=== PATIENT | male | born 1970 | race Caucasian/White ===

== ENCOUNTER 2019-07-16 09:54 | Emergency (ER) | payer OTHER, SELFPAY ==
[2019-07-16 10:03] VITALS: BP 122/81; PULSE 110; RESP 20; TEMP 36.7; O2SAT 97
[2019-07-16 10:08] VITALS: PULSE 110; RESP 20; O2SAT 97
--- NOTE | 2019-07-16 10:14 | ED.GENADULT ---
HPI - General Adult General Chief complaint: Upper Respiratory Infection Stated complaint: cough/dizzy/chest hurts/fever Time Seen by Provider: 07/16/19 10:14 Source: patient Mode of arrival: ambulatory Limitations: no limitations History of Present Illness HPI narrative: 49-year-old male patient presents to the [facility] with complaints of cold and flu symptoms that started 3 days ago. Patient states that he did not get a flu shot this year. Patient states he started with cold symptoms such as some nasal congestion coughing. Patient states he does have some chest pain at times when he coughs but denies any shortness of breath. Patient states he has been feeling very achy with fevers as high as 100-1 01. Related Data Allergies Allergy/AdvReac Type Severity Reaction Status Date / Time No Known Allergies Allergy Verified 07/16/19 10:03 Review of Systems Review of Systems: Narrative: CONSTITUTIONAL: Positive fever, chills, body aches and sweats. EYES: Denies visual changes, redness, or discharge. ENT: Positive rhinorrhea, congestion, denies sore throat, or otalgia. CARDIOVASCULAR: Positive chest pain when coughing, denies palpitations, or edema. RESPIRATORY: Positive cough, denies dyspnea. GASTROINTESTINAL: Denies abdominal pain, nausea, vomiting, or diarrhea. GENITOURINARY: Denies dysuria or hematuria. SKIN: Denies rash or itching. MUSCULOSKELETAL: Denies back pain, joint pain, or myalgia. NEUROLOGIC: Denies headache, numbness, or weakness. PSYCHIATRIC: Denies anxiety or depression. PMFSH Comments At the time of my signature I agree with nursing past medical history, surgical, social, and family history. There is no relevant family history pertinent to the presenting complaint. Exam Narrative: Exam Narrative: GENERAL: ill-appearing, well-nourished, and in no acute distress. HEAD: Normocephalic, atraumatic. EYES: PERRLA and EOMI. ENT: Nares with erythema and edema noted bilaterally, no rhinorrhea or epistaxis. Mucous membranes moist. Posterior pharynx no erythema, tonsillar margin, exudates or lesions present. Bilateral TMs are clear with no erythema or foreign bodies in the canal. NECK: Supple. No lymphadenopathy CHEST: Clear to auscultation. No respiratory distress. HEART: Regular rate and rhythm. No murmur heard. Normal peripheral pulses. ABDOMEN: Soft, nontender, nondistended, normal active bowel sounds. EXTREMITIES: Normal range of motion. No edema. SKIN: Warm, dry, no rash. NEURO: No focal deficits. Alert and oriented x3. Course Vital Signs Vital signs: Vital Signs Temperature 36.7 C 07/16/19 10:03 Pulse Rate 110 H 07/16/19 10:03 Respiratory Rate 07/16/19 10:03 Blood Pressure 122/81 07/16/19 10:03 Pulse Oximetry 97 07/16/19 10:03 Temperature 36.7 C 07/16/19 10:03 Pulse Rate 110 H 07/16/19 10:08 Respiratory Rate 07/16/19 10:08 Blood Pressure 122/81 07/16/19 10:03 Pulse Oximetry 97 07/16/19 10:08 Vital signs reviewed. The patient has been informed that they may have pre-hypertension or Hypertension based on a BP reading in the department. I recommend that the patient call the primary care provider listed on their discharge instructions or a physician of their choice this week to arrange follow up for further evaluation of possible pre-hypertension or Hypertension Medical Decision Making Differential Diagnosis Differential Diagnosis: Differential diagnosis: Allergic rhinitis, chronic sinusitis, tonsillitis, acute sinusitis, infectious mononucleosis, seasonal influenza, pertussis, diphtheria, meningococcal disease, viral syndrome, viral bronchitis, RSV. Discussed with patient he is positive today for influenza A and since his symptoms that started 3 days ago he is outside the window to receive antivirals. Discussed with patient he can continue treating himself with [id number] Tylenol, ibuprofen and I will also give him a cough syrup to help with the coughing symptoms.
== END 2019-07-16 10:23 | disposition home or self-care (01) ==
PROVIDERS: Emergency Provider Nurse Practitioner Family
DX: J10.1 Influenza due to other identified influenza virus with other respiratory manifestations (principal)
CPT/HCPCS: 87804; 99203; G0463

== ENCOUNTER 2023-06-27 06:18 | Day surgery (SDC) | payer OTHER, SELFPAY ==
[2023-05-29 13:54] VITALS: BMI 30.3
--- NOTE | 2023-06-27 07:25 | PM.HPGS ---
History of Present Illness History of Present Illness Consent: Risks, benefits, and alternatives have been discussed and questions answered. Patient agrees to proceed with procedure. Chief complaint: Neoplasm Screening Narrative: Hermilo Mendez is a 53 year old male presents for screening colonoscopy. Patient's current weight appetite and bowel movements are normal. Patient denies abdominal pain. He has had no bleeding. Family history noncontributory. Review of Systems Review of Systems: Review of systems noncontributory. 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 Spiritual care concerns: No Agree to blood products: Yes Meds Home Medications and Allergies Home Medications Medication Instructions Recorded Confirmed Type ascorbic acid (vitamin C) 250 mg 250 mg PO DAILY 02/08/22 06/27/23 History tablet vitamin E (dl, acetate) 45 mg (100 45 mg PO DAILY 02/08/22 06/27/23 History unit) capsule sodium,potassium,mag sulfates 17.5 See Rx Instructions PO .COMPLEX 05/29/23 06/27/23 Rx gram-3.13 gram-1.6 gram oral soln #354 mL (Suprep Bowel Prep Kit) Allergies Allergy/AdvReac Type Severity Reaction Status Date / Time No Known Allergies Allergy Verified 06/27/23 07:07 Exam Narrative: Physical exam reveals patient to be alert vital signs stable. HEENT exam is unremarkable. Patient is anicteric. Lungs are clear to auscultation and percussion heart is without murmur or extra sounds. Abdomen bowel sounds are present soft nontender , no organomegaly. Digital external rectal exam is normal. Assessment and Plan Assessment and plan (1) Encounter for screening colonoscopy: Code(s): Z12.11 - Encounter for screening for malignant neoplasm of colon Status: Acute Assessment and Plan: Patient presents for screening colonoscopy. He appears to be at average risk for colon polyps.
--- NOTE | 2023-06-27 07:33 | P.PNAN_ITS ---
Anes - Initial Pre Proc Eval Procedure: Operation Date: 06/27/23 08:30 Proposed Procedures p Screening Colonoscopy - Rob Francois MD Date/Time: 06/27/23 07:33 Surgeon: Rob Francois MD Pre Op Diagnosis: Neoplasm Screening Patient Data Age: 53 Gender: M Height: 1.85 m Weight: 101.4 kg Allergies Allergy/AdvReac Type Severity Reaction Status Date / Time No Known Allergies Allergy Verified 06/27/23 07:07 Home Medications Medication Instructions Recorded Confirmed Type ascorbic acid (vitamin C) 250 mg 250 mg PO DAILY 02/08/22 06/27/23 History tablet vitamin E (dl, acetate) 45 mg (100 45 mg PO DAILY 02/08/22 06/27/23 History unit) capsule sodium,potassium,mag sulfates 17.5 See Rx Instructions PO .COMPLEX 05/29/23 06/27/23 Rx gram-3.13 gram-1.6 gram oral soln #354 mL (Suprep Bowel Prep Kit) Patient hx anesthesia problems: none Family hx anesthesia problems: none Results Review: All pre-operative results and documents have been reviewed as part of the pre- operative evaluation. 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 Informed Consent: The patient's anesthetic plan and its attendant risks and benefits were discussed with the patient/family/POA. Questions were solicited and answers provided to the satisfaction of the patient/family/POA.
[2023-06-27] MEDS: LACTATED RINGERS 1,000 ML 150 ML IV CONT (07:36)
[2023-06-27 07:37] VITALS: BP 140/98; PULSE 65; RESP 20; TEMP 36.3; O2SAT 100
[2023-06-27 08:20] VITALS: BP 103/67; PULSE 70; RESP 16; O2SAT 97
[2023-06-27 08:30] VITALS: BP 117/76; PULSE 60; RESP 16; O2SAT 99
[2023-06-27 08:40] VITALS: BP 123/86; PULSE 57; RESP 16; O2SAT 100
--- NOTE | 2023-06-27 08:40 | WPDANESPN ---
Anes - Prog Note Post-Op Date/Time: 06/27/23 08:40 Cardiovascular status: normal Respiratory status: normal Airway patency: baseline Mental status: baseline Post-Op hydration status: normal Vital Signs: Last Vital Signs Temp 36.3 C L 06/27/23 07:37 Pulse 60 06/27/23 08:30 Resp 16 06/27/23 08:30 BP 117/76 06/27/23 08:30 Pulse Ox 99 06/27/23 08:30 O2 Del Method Room Air 06/27/23 08:30 Pain Score (VAS): 0/10 I/O: Intake & Output 06/26/23 06/27/23 06/27/23 23:59 07:59 15:59 Intake Total 400 Balance 400 Patient Feedback: Patient satisfied with anesthetic care.
== END 2023-06-27 08:57 | disposition home or self-care (01) ==
PROVIDERS: PCP Family Medicine; Visit Provider Internal Medicine Gastroenterology
PROC: 0DJD8ZZ Inspection of Lower Intestinal Tract, Via Natural or Artificial Opening Endoscopic (ICD-10-PCS; CPT 45378; principal; 2023-06-27 08:30)
DX: Z12.11 Encounter for screening for malignant neoplasm of colon (principal); K64.8 Other hemorrhoids
CPT/HCPCS: 45378